=== PATIENT | female | born 1950 | race African-American/Black ===

== ENCOUNTER 2016-10-31 17:31 | Emergency (ER) | payer MEDICARE, MEDICAID ==
[~2016-10-31] VITALS: Ht 167.6 cm; Wt 110.6 kg
[~2016-10-31 17:31] MED LIST: AMIT150T PO; ANTIBIOTIC; BENZ2AMP4 PO; HYDR-3307 PO; LISI40TA PO
[2016-10-31] MEDS ORDERED: SODIUM CHLORIDE 0.9% 1,000 ML IV ONE (17:56)
[2016-10-31] MEDS ORDERED: SODIUM CHLORIDE FLUSH 10ML SYR IVF ONE (18:00)
[2016-10-31] MEDS ORDERED: HYDROmorphone 1 MG/ML, 1ML IVPush PRN (18:00)
[2016-10-31] MEDS ORDERED: ONDANSETRON 2MG/ML, 2ML IVPush ONE (18:00)
[2016-10-31 19:10] LABS: PATH.CAST-FLAG NOT PRESENT; SPERM-FLAG NOT PRESENT; SRC-FLAG NOT PRESENT; XTAL-FLAG NOT PRESENT; YLC-FLAG NOT PRESENT
[2016-10-31] MEDS ORDERED: BUSP10TA PO (19:22)
[2016-10-31] MEDS ORDERED: HYDR25TA6 PO (19:22)
[2016-10-31] MEDS ORDERED: LOPE2TAB59 PO (19:22)
[2016-10-31] MEDS ORDERED: QUET400T52 PO (19:22)
[2016-10-31 19:31] LABS: ASPARTATE AMINO TRANSFERASE 14 U/L (15-37); BLOOD UREA NITROGEN 4 mg/dL (7-18)
[2016-10-31 20:30] VITALS: BP 178/94
== END 2016-10-31 21:08 | disposition home or self-care (01) ==
LOC: ED 20:55
DX: M17.11 Unilateral primary osteoarthritis, right knee (principal); R10.9 Unspecified abdominal pain; G89.29 Other chronic pain; F32.9 Major depressive disorder, single episode, unspecified; E78.5 Hyperlipidemia, unspecified; I10 Essential (primary) hypertension; Z90.11 Acquired absence of right breast and nipple
CPT/HCPCS: 36415; 74022; 74176; 80053; 81001; 83690; 85025; 87086

== ENCOUNTER 2016-12-19 16:15 | Emergency (ER) | payer MEDICARE, MEDICAID ==
[~2016-12-19] VITALS: Ht 167.6 cm; Wt 111.3 kg
[~2016-12-19 16:15] MED LIST changes: +BUSP10TA PO; +HYDR25TA6 PO; +LOPE2TAB59 PO; +QUET400T52 PO
[2016-12-19 16:20] VITALS: BP 188/109
[2016-12-19 17:07] LABS: BLOOD UREA NITROGEN 13 mg/dL (7-18)
[2016-12-19 17:17] LABS: IS PT STATUS REG ER OR PRE ER? YES
== END 2016-12-19 18:38 | disposition left against medical advice (07) ==
LOC: ED 18:32
DX: M79.672 Pain in left foot (principal); G89.29 Other chronic pain; R05 Cough; M19.90 Unspecified osteoarthritis, unspecified site; E78.5 Hyperlipidemia, unspecified; I10 Essential (primary) hypertension; Z90.10 Acquired absence of unspecified breast and nipple; Z88.0 Allergy status to penicillin; Z88.5 Allergy status to narcotic agent
CPT/HCPCS: 36415; 71020; 80048; 81001; 84484; 85025; 93005; 99285

== ENCOUNTER → 2017-02-13 | Outpatient (CLI) | payer MEDICARE, MEDICAID | LOC: CFH 10:01 | PROVIDERS: ATTEND Surgery | DX: Z12.31 Encounter for screening mammogram for malignant neoplasm of breast (principal) | CPT/HCPCS: G0202 ==

== ENCOUNTER 2017-02-22 12:38 | Emergency (ER) | payer MEDICARE, MEDICAID ==
[~2017-02-22] VITALS: Ht 167.6 cm; Wt 109.8 kg
[2017-02-22] MEDS ORDERED: SODIUM CHLORIDE FLUSH 10ML SYR IVF ONE (13:30)
[2017-02-22] MEDS ORDERED: SODIUM CHLORIDE 0.9% 1,000ML IVBOLUS ONE (13:30)
[2017-02-22] MEDS ORDERED: ONDANSETRON 2MG/ML, 2ML IVPush ONE (13:30)
[2017-02-22] MEDS ORDERED: FENTANYL PF 100 MCG/2ML ONE (13:48)
[2017-02-22] MEDS ORDERED: ONDANSETRON 2MG/ML, 2ML ONE (13:49)
[2017-02-22] MEDS: FENTANYL PF 100 MCG/2ML IV PRN ×2 (13:50→14:47)
[2017-02-22 14:08] LABS: HEMATOCRIT 40.8 % (34.6-47.8); HEMOGLOBIN 13.4 g/dL (11.7-16.4)
[2017-02-22 14:18] LABS: ASPARTATE AMINO TRANSFERASE 13 U/L (15-37); BLOOD UREA NITROGEN 11 mg/dL (7-18)
[2017-02-22] MEDS ORDERED: OMNIPAQUE 350 MG/ML, 150 ML BOTTLE ONE (14:36)
[2017-02-22 17:04] VITALS: BP 147/80
== END 2017-02-22 17:06 | disposition home or self-care (01) ==
LOC: ED 13:46
DX: R10.84 Generalized abdominal pain (principal); Z88.5 Allergy status to narcotic agent; Z88.0 Allergy status to penicillin; E78.5 Hyperlipidemia, unspecified; I10 Essential (primary) hypertension; M19.90 Unspecified osteoarthritis, unspecified site
CPT/HCPCS: 36415; 74177; 80053; 81003; 83605; 83690; 85025; 85610; 93005; 96361; 96374; 96375; 99285; J2405; J3010; J7030; Q9967

== ENCOUNTER 2017-07-03 12:19 | Emergency (ER) | payer MEDICARE, MEDICAID ==
[~2017-07-03] VITALS: Ht 167.6 cm; Wt 100.0 kg
[2017-07-03 13:18] LABS: HEMATOCRIT 47.3 % (34.6-47.8); HEMOGLOBIN 15.5 g/dL (11.7-16.4); WHITE BLOOD COUNT 7.2 x10^3/uL (3.4-10)
[2017-07-03 13:30] LABS: BLOOD UREA NITROGEN 11 mg/dL (7-18)
[2017-07-03] MEDS ORDERED: ACETAMINOPHEN 325 MG TABLET PO ONE (13:30)
[2017-07-03 13:34] LABS: ASPARTATE AMINO TRANSFERASE 19 U/L (15-37)
[2017-07-03] MEDS ORDERED: ACETAMINOPHEN 325 MG TABLET ONE (14:07)
== END 2017-07-03 14:26 | disposition home or self-care (01) ==
LOC: ED 14:17
DX: M79.602 Pain in left arm (principal); R51 Headache; M54.2 Cervicalgia; I10 Essential (primary) hypertension; E78.5 Hyperlipidemia, unspecified; M19.90 Unspecified osteoarthritis, unspecified site
CPT/HCPCS: 36415; 70450; 80053; 85025; 99285

== ENCOUNTER → 2017-08-10 | Outpatient (CLI) | payer MEDICARE, MEDICAID ==
[2017-08-10 15:37] LABS: BASOPHILS # (AUTO) 0.04 x10^3/uL (0-0.1); BASOPHILS % (AUTO) 1 % (0-1); EOSINOPHILS % (AUTO) 1 % (1-7); LYMPHOCYTES # (AUTO) 2.77 x10^3/uL (1-3.4); LYMPHOCYTES % (AUTO) 34 % (22-44); MD NO; MEAN CORPUSCULAR HEMOGLOBIN 30.7 pg (27.0-34.8); MEAN CORPUSCULAR HGB CONC 32.2 g/dL (32.4-35.8); MEAN CORPUSCULAR VOLUME 95.3 fL (80-100); MONOCYTES # (AUTO) 0.85 x10^3/uL (0.2-0.8); MONOCYTES % (AUTO) 10 % (2-9); NEUTROPHILS # (AUTO) 4.44 x10^3/uL (1.8-6.8); NEUTROPHILS % (AUTO) 54 % (42-75); PLATELET COUNT 270 x10^3/uL (130-400); RED BLOOD COUNT 4.43 x10^6/uL (3.82-5.3); RED CELL DISTRIBUTION WIDTH 15.5 % (9.6-15.2)
[2017-08-10 15:48] LABS: ALANINE AMINOTRANSFERASE 26 U/L (12-78); ALBUMIN 3.8 g/dL (3.4-5.0); ANION GAP 9 mmol/L (5-15); CALCIUM 9.5 mg/dL (8.5-10.1); CHLORIDE 105 mmol/L (98-107); CHOLESTEROL, TOTAL 172 mg/dL (140-239); CREATININE 0.93 mg/dL (0.55-1.02); TRIGLYCERIDES 60 mg/dL (50-200); VLDL CHOLESTEROL 12 mg/dL (0-25)
[2017-08-10 15:58] LABS: ALKALINE PHOSPHATASE 130 U/L (45-117); BILIRUBIN,TOTAL 0.4 mg/dL (0.2-1.0); CHOL/HDL RATIO 1.9; HDL CHOL % 52 % (28-40); HDL CHOLESTEROL (DIRECT) 89 mg/dL (40-60); LDL CHOLESTEROL,CALCULATED 71 mg/dL (54-169); LDL/HDL RATIO 0.8 (0.5-3.0); T4 (THYROXINE) 7.1 mcg/dL (4.8-13.9); THYROID STIMULATING HORMONE 0.989 mIU/L (0.358-3.740); TOTAL PROTEIN 7.1 g/dL (6.4-8.2)
== END | disposition home or self-care (01) ==
LOC: CFH 10:37
PROVIDERS: ATTEND Neurological Surgery
DX: D32.0 Benign neoplasm of cerebral meninges (principal); G31.89 Other specified degenerative diseases of nervous system; I10 Essential (primary) hypertension; E78.5 Hyperlipidemia, unspecified
CPT/HCPCS: 36415; 70551; 80053; 80061; 82565; 84436; 84443; 85025

== ENCOUNTER 2018-05-22 08:12 | Emergency (ER) | payer MEDICARE, MEDICAID ==
[~2018-05-22] VITALS: Ht 167.6 cm; Wt 110.0 kg
[2018-05-22 08:45] LABS: BASOPHILS # (AUTO) 0.18 x10^3/uL (0-0.1); BASOPHILS % (AUTO) 3 % (0-1); EOSINOPHILS # (AUTO) 0.18 x10^3/uL (0-0.4); EOSINOPHILS % (AUTO) 3 % (1-7); LYMPHOCYTES # (AUTO) 2.06 x10^3/uL (1-3.4); LYMPHOCYTES % (AUTO) 39 % (22-44); MD NO; MEAN CORPUSCULAR HEMOGLOBIN 31.4 pg (27.0-34.8); MEAN CORPUSCULAR HGB CONC 33.6 g/dL (32.4-35.8); MEAN CORPUSCULAR VOLUME 93.7 fL (80-100); MEAN PLATELET VOLUME 7.7 fL (7.4-10.4); MONOCYTES # (AUTO) 0.45 x10^3/uL (0.2-0.8); MONOCYTES % (AUTO) 8 % (2-9); NEUTROPHILS # (AUTO) 2.45 x10^3/uL (1.8-6.8); NEUTROPHILS % (AUTO) 46 % (42-75); PLATELET COUNT 229 x10^3/uL (130-400); RED BLOOD COUNT 4.28 x10^6/uL (3.82-5.3); RED CELL DISTRIBUTION WIDTH 15.1 % (9.6-15.2)
[2018-05-22] MEDS ORDERED: BENZ1TAB61 PO (08:48)
[2018-05-22] MEDS ORDERED: PERP8TAB2 PO (08:50)
[2018-05-22] MEDS ORDERED: TRAZ-137 PO (08:50)
[2018-05-22] MEDS ORDERED: DIPH25CA61 PO (08:52)
[2018-05-22 08:59] LABS: ALBUMIN 3.5 g/dL (3.4-5.0); ANION GAP 7 mmol/L (5-15); CALCIUM 9.5 mg/dL (8.5-10.1); CHLORIDE 107 mmol/L (98-107)
[2018-05-22 09:04] LABS: ALANINE AMINOTRANSFERASE 17 U/L (12-78); ALKALINE PHOSPHATASE 108 U/L (45-117); BILIRUBIN,TOTAL 0.4 mg/dL (0.2-1.0); CREATININE 0.98 mg/dL (0.55-1.02); TOTAL PROTEIN 6.8 g/dL (6.4-8.2); TROPONIN I < 0.015 ng/mL (0.000-0.045)
[2018-05-22 09:56] LABS: MICROSCOPIC AUTO
[2018-05-22 10:03] LABS: CULTURE INDICATED? YES
[2018-05-22 10:25] VITALS: BP 162/96
== END 2018-05-22 10:45 | disposition home or self-care (01) ==
LOC: ED 08:50
DX: J18.9 Pneumonia, unspecified organism (principal); I10 Essential (primary) hypertension; E11.9 Type 2 diabetes mellitus without complications; M19.90 Unspecified osteoarthritis, unspecified site; F32.9 Major depressive disorder, single episode, unspecified
CPT/HCPCS: 36415; 74022; 80053; 81001; 83690; 84484; 85025; 87077; 87086; 87186; 93005; 99285

== ENCOUNTER 2018-06-21 16:39 | Emergency (ER) | payer MEDICARE, MEDICAID ==
[~2018-06-21] VITALS: Ht 167.6 cm; Wt 110.0 kg
[~2018-06-21 16:39] MED LIST changes: +BENZ1TAB61 PO; +DIPH25CA61 PO; +PERP8TAB2 PO; +TRAZ-137 PO
[2018-06-21] MEDS ORDERED: HYDROmorphone 2 MG/ML, 1ML IVPush PRN (17:00)
[2018-06-21 17:44] LABS: MICROSCOPIC NOT IND
[2018-06-21 17:46] LABS: CULTURE INDICATED? NO
[2018-06-21 17:47] LABS: BASOPHILS # (AUTO) 0.09 x10^3/uL (0-0.1); BASOPHILS % (AUTO) 1 % (0-1); EOSINOPHILS # (AUTO) 0.09 x10^3/uL (0-0.4); EOSINOPHILS % (AUTO) 1 % (1-7); LYMPHOCYTES # (AUTO) 2.39 x10^3/uL (1-3.4); LYMPHOCYTES % (AUTO) 36 % (22-44); MD NO; MEAN CORPUSCULAR HEMOGLOBIN 31.6 pg (27.0-34.8); MEAN CORPUSCULAR HGB CONC 33.4 g/dL (32.4-35.8); MEAN CORPUSCULAR VOLUME 94.5 fL (80-100); MEAN PLATELET VOLUME 8.1 fL (7.4-10.4); MONOCYTES # (AUTO) 0.51 x10^3/uL (0.2-0.8); MONOCYTES % (AUTO) 8 % (2-9); NEUTROPHILS % (AUTO) 53 % (42-75); PLATELET COUNT 231 x10^3/uL (130-400); RED BLOOD COUNT 4.09 x10^6/uL (3.82-5.3); RED CELL DISTRIBUTION WIDTH 15.1 % (9.6-15.2)
[2018-06-21 17:48] LABS: INTERNATIONAL NORMALIZED RATIO 1.02 (0.93-1.1); PROTHROMBIN TIME 10.8 Seconds (9.6-11.5)
[2018-06-21 17:52] LABS: ALANINE AMINOTRANSFERASE 15 U/L (12-78); ALBUMIN 3.8 g/dL (3.4-5.0); ANION GAP 9 mmol/L (5-15); CALCIUM 9.2 mg/dL (8.5-10.1); CHLORIDE 109 mmol/L (98-107); CREATININE 0.98 mg/dL (0.55-1.02)
[2018-06-21 17:57] LABS: ALKALINE PHOSPHATASE 108 U/L (45-117); BILIRUBIN,TOTAL 0.4 mg/dL (0.2-1.0); TROPONIN I < 0.015 ng/mL (0.000-0.045)
[2018-06-21] MEDS ORDERED: SODIUM CHLORIDE FLUSH 10ML SYR IVF ONE (18:00)
[2018-06-21] MEDS ORDERED: OMNIPAQUE 350 MG/ML, 100ML BOTTLE ONE (18:49)
[2018-06-21 18:51] VITALS: BP 188/100
== END 2018-06-21 20:31 | disposition home or self-care (01) ==
LOC: ED 17:48
DX: R07.89 Other chest pain (principal); I10 Essential (primary) hypertension; E11.9 Type 2 diabetes mellitus without complications; E78.5 Hyperlipidemia, unspecified; M19.90 Unspecified osteoarthritis, unspecified site; F32.9 Major depressive disorder, single episode, unspecified
CPT/HCPCS: 36415; 71275; 74022; 80053; 81003; 83690; 83880; 84145; 84484; 85025; 85610; 85730; 93005; 99284; Q9967